=== PATIENT | female | born 1975 | race Caucasian/White ===

== ENCOUNTER 2022-11-10 08:17 | Emergency (ER) | payer MEDICAID ==
[~2022-11-10] VITALS: Ht 165.1 cm; Wt 106.1 kg
--- NOTE | 2022-11-10 08:25 | NUR ---
RECEIVED PT 47 YRS FEMALE WAAKING IN FROM HOME C/O OPEN DRAING WOUND open for 2 day bad oder dressing
--- NOTE | 2022-11-10 08:45 | NUR ---
SEEN BY DR. WRIGHT
[2022-11-10] MEDS ORDERED: CEPH500C2 PO (09:03)
[2022-11-10] MEDS ORDERED: BACI30OI9 TP (09:05)
--- NOTE | 2022-11-10 09:10 | NUR ---
WOUND CARE DONE
[2022-11-10 09:35] VITALS: BP 130/88
--- NOTE | 2022-11-10 09:35 | NUR ---
Patient discharged to home in stable condition. Written and verbal after care instructions given. Patient verbalizes understanding of instruction.
== END 2022-11-10 09:36 | disposition home or self-care (01) ==
LOC: ER 08:38
DX: L03.115 Cellulitis of right lower limb (principal); Z79.899 Other long term (current) drug therapy
CPT/HCPCS: 99283; A6403

== ENCOUNTER 2022-12-08 12:26 | Emergency (ER) | payer MEDICAID ==
[~2022-12-08] VITALS: Ht 165.1 cm; Wt 106.6 kg
[~2022-12-08 12:26] MED LIST: BACI30OI9 TP; CEPH500C2 PO
[2022-12-08 12:43] VITALS: BP 147/93
[2022-12-08] MEDS ORDERED: ARIP5TAB10 PO (14:14)
== END 2022-12-08 14:35 | disposition home or self-care (01) ==
LOC: ER 12:35
DX: F41.9 Anxiety disorder, unspecified (principal); Z76.0 Encounter for issue of repeat prescription; Z79.899 Other long term (current) drug therapy